=== PATIENT | female | born 1970 | race Caucasian/White ===

== ENCOUNTER 2016-10-16 09:36 | Emergency (ER) | payer OTHER ==
[~2016-10-16] VITALS: Ht 167.6 cm; Wt 89.3 kg
[2016-10-16 10:36] LABS: ADD MIUA? YES; BILIRUBIN NEGATIVE; BLOOD LARGE; COLOR YELLOW ((YELLOW)); GLUCOSE (STRIP) NEGATIVE; KETONES NEGATIVE; LEUKOCYTES LARGE; NITRITE NEGATIVE; PROTEIN (STRIP) 30; SPECIFIC GRAVITY 1.019 (1.000-1.030); UROBILINOGEN 0.2 MG/DL (0.2-1.0)
[2016-10-16 10:42] LABS: BACTERIA RARE /HPF; CALCIUM OXALATE CRYSTALS 4+ /HPF; EPITHELIAL CELLS 2+ /HPF; MUCUS 3+ /LPF; UCUL ADDED? NO; WHITE BLOOD CELLS 15-20 /HPF (0-5); WHITE BLOOD CELLS CLUMP FEW /HPF (0-5)
[2016-10-16 10:53] LABS: HEMATOCRIT 44.1 % (36.0-46.0); MCHC 33.6 G/DL (30.0-36.0); MCV 89.5 FL (83-99); MEAN PLAT.VOLUME 10.8 uM^3 (9.5-12.4); PLATELET COUNT 274 K/uL (156-360); RBC DIS.WIDTH-CV 12.1 % (11.8-14.6); RBC DIS.WIDTH-SD 39.7 % (39-53); RED BLOOD COUNT 4.93 M/uL (3.80-5.20); WHITE BLOOD COUNT 7.4 K/uL (4.1-10.2)
[2016-10-16 11:05] LABS: CHLORIDE 105 mEq/L (99-109); POTASSIUM 3.8 mEq/L (3.7-5.4); SODIUM 140 mEq/L (136-147)
[2016-10-16 11:07] LABS: GLUCOSE 112 mg/dL (70-99)
[2016-10-16 11:09] LABS: ANION GAP 9 MEQ/L (2-14)
[2016-10-16 11:12] LABS: GFR ESTIMATE (CALCULATED) > 59 mL/min/; UREA NITROGEN (BUN) 8 mg/dL (9-23)
[2016-10-16 11:24] LABS: QUANTITATIVE HCG < 4.0 MIU/ML
[2016-10-16] MEDS ORDERED: KEFLEX500 MG PO (14:15)
[2016-10-16 14:52] VITALS: BP 128/72
== END 2016-10-16 14:53 | disposition home or self-care (01) ==
LOC: EME 09:36
DX: N39.0 Urinary tract infection, site not specified (principal); R31.9 Hematuria, unspecified; D25.9 Leiomyoma of uterus, unspecified; N20.0 Calculus of kidney; Z90.49 Acquired absence of other specified parts of digestive tract; F17.200 Nicotine dependence, unspecified, uncomplicated; Z71.6 Tobacco abuse counseling
CPT/HCPCS: 74176; 80048; 81003; 84702; 85027; 99281; 99283